=== PATIENT | female | born 1960 | race Caucasian/White ===

== ENCOUNTER → 2017-04-25 | Outpatient (CLI) | payer OTHER ==
[~2017-04-25] MED LIST: ADVIN25050 INH; ALBUAER2 INH; CLC100 PO; CLXUNK PO; CMD75 PO; ECON0.05; FRRS300 PO; LSX20 PO; OMEG10007 PO; OMEP40CA PO; OXGN; POTA10CA28 PO; [UNRECOGNIZED DRUG - OTHER] PO; clotrimazole TOP
--- NOTE | 2017-04-26 07:52 | MAMMOGRAPHY REPORT ---
BILATERAL DIGITAL SCREENING MAMMOGRAM TOMOSYNTHESIS WITH CAD: 04/25/2017 CLINICAL HISTORY: Routine screening. Patient has no complaints. TECHNIQUE: Breast tomosynthesis in addition to standard 2D mammography was performed. Current study was also evaluated with a Computer Aided Detection (CAD) system. COMPARISON: Comparison is made to exams dated: 02/25/2016 mammogram, 01/23/2015 mammogram, 4 mammogram, 12/28/2012 mammogram, 12/08/2011 mammogram, and 12/03/2010 mammogram - [facility]. BREAST COMPOSITION: The tissue of both breasts is almost entirely fatty. FINDINGS: There are stable grouped round and punctate, benign-appearing microcalcifications in the r ight upper outer anterior breast. No new suspicious mass, architectural distortion or cluster of ena rocalcifications is seen. IMPRESSION: ACR BI-RADS CATEGORY 2: BENIGN There is no mammographic evidence of malignancy. A 1 year screening mammogram is recommended. The pa tient will receive written notification of the results. Approximately 10% of breast cancers are not detected with mammography. A negative mammographic report should not delay biopsy if a clinically suggestive mass is present. Kajal Valdes M.D. ay/:04/25/2017 15:44:18 Chain Repairer: Yadi Thomas, [facility] letter sent: Normal 1/2 BI-RADS Code: ACR BI-RADS Category 2: Benign
== END ==
LOC: C.MAMM 10:28
PROVIDERS: ATTEND Family Medicine
DX: Z12.31 Encounter for screening mammogram for malignant neoplasm of breast (principal)